=== PATIENT | male | born 1980 | race Caucasian/White ===

== ENCOUNTER 2021-10-21 12:28 | Inpatient (IN) | payer BC ==
[~2021-10-21] VITALS: Ht 182.9 cm; Wt 63.0 kg
--- NOTE | 2021-10-21 13:15 | NUR ---
PATIENT RECEIVED FROM MAIN ER. HE IS CALM, COOPERATIVE, A&O X4. PATIENTS BELONGINGS INVENTORIED AND LOCKED IN OVERFLOW ROOM 27. PATIENT SITTING IN BED AT THIS TIME TALKING WITH FRIEND AT BEDSIDE. NO S/S OF DISTRESS. WILL CONTINUE TO MONITOR.
[2021-10-21 13:21] LABS: CLARITY,URINE CLEAR (Clear); COLOR,URINE YELLOW (Yellow); GLUCOSE, URINE NEGATIVE (Neg); KETONES,URINE NEGATIVE (Neg); LEUKOCYTE ESTERASE ,URINE NEGATIVE (Neg); NITRITES, URINE NEGATIVE (Neg); OCCULT BLOOD,URINE NEGATIVE (Neg); PROTEIN,URINE NEGATIVE (Neg); UROBILINOGEN,URINE 0.2 E.U/dL (0.2-1.0)
[2021-10-21 13:22] LABS: UA COLLECTION TYPE CLN CATCH MIDSTREAM
[2021-10-21 13:23] LABS: BASOPHILS % (AUTO) 0.4 % (0-1); EOSINOPHILS # (AUTO) 0.1 X10'3 (0-0.9); EOSINOPHILS % (AUTO) 0.9 % (0-6); HEMATOCRIT 45.2 % (42.0-52.0); HEMOGLOBIN 15.4 g/dl (14.0-17.9); LYMPHOCYTES # (AUTO) 1.9 X10'3 (1.1-4.8); MEAN CORPUSCULAR HEMOGLOBIN 33.8 PG (27.0-31.0); MEAN CORPUSCULAR HGB CONC 34.1 g/dL (33.0-36.5); MEAN CORPUSCULAR VOLUME 99.2 FL (78-98); MONOCYTES # (AUTO) 0.7 X10'3 (0-0.9); NEUTROPHILS # (AUTO) 7.3 X10'3 (1.8-7.7); NEUTROPHILS % (AUTO) 72.7 % (42-75); PLATELET COUNT 261 X10'3 (140-440); RED BLOOD COUNT 4.56 X10'6 (4.70-6.10); RED CELL DISTRIBUTION WIDTH 13.3 % (11.5-14.5); WHITE BLOOD COUNT 10.1 X10'3 (4.5-11.0)
[2021-10-21 13:29] LABS: ALANINE AMINOTRANSFERASE 22 U/L (12-78); ALBUMIN 4.3 G/DL (3.4-5.0); ALBUMIN/GLOBULIN RATIO 1.4 (1.1-1.5); ALKALINE PHOSPHATASE 76 IU/L (46-116); ANION GAP 10 (8-16); ASPARTATE AMINO TRANSFERASE 16 U/L (10-37); BILIRUBIN,TOTAL 0.5 MG/DL (0.1-1.0); BLOOD UREA NITROGEN 7 MG/DL (7-18); CALCIUM 8.8 MG/DL (8.5-10.1); CHLORIDE 104 MMOL/L (99-107); CREATININE 0.78 MG/DL (0.60-1.10); GLUCOSE 97 MG/DL (70-104); POTASSIUM 4.1 MMOL/L (3.5-5.1); SODIUM 141 MMOL/L (135-145); TOTAL CARBON DIOXIDE 26.9 MMOL/L (24-32); TOTAL PROTEIN 7.3 G/DL (6.4-8.2); eGFR > 90 ML/MIN
[2021-10-21 13:32] LABS: URINE AMPHETAMINE SCREEN NEGATIVE (Neg); URINE BARBITUATE SCREEN NEGATIVE (Neg); URINE BENZODIAZEPINES SCREEN POSITIVE (Neg); URINE CANNABINOID SCREEN POSITIVE (Neg); URINE COCAINE SCREEN NEGATIVE (Neg); URINE METHADONE SCREEN NEGATIVE (Neg); URINE OPIATE SCREEN NEGATIVE (Neg); URINE PHENCYCLIDINE SCREEN NEGATIVE (Neg)
[2021-10-21 13:39] LABS: ETHANOL < 0.010 GM/DL (0.0-0.010)
--- NOTE | 2021-10-21 14:14 | NUR ---
PACKET FAXED TO [facility] AT THIS TIME
[2021-10-21] MEDS ORDERED: NO HOME MEDS (15:09)
--- NOTE | 2021-10-21 15:11 | NUR ---
PATIENT BEING EVALUATED BY LARISA WEI AT THIS TIME
--- NOTE | 2021-10-21 15:30 | NUR ---
PATIENT VOICING SI TO THIS SYSTEM ADMIN. PATIENT ENDORSED THAT HE HAS AN ACTIVE PLAN TO KILL HIMSELF IF HE WAS TO LEAVE, HOWEVER, DOES NOT WANT TO GO INTO DETAIL. HE CONTINUES SITTING IN HIS ROOM QUIETLY AT THIS TIME. NO S/S OF DISTRESS.
[2021-10-21] MEDS ORDERED: nicotine 21mg patch - 24 hr TD ONE (16:00)
--- NOTE | 2021-10-21 17:00 | NUR ---
PATIENT SLEEPING IN BED AT THIS TIME ON HIS LEFT SIDE. RESPIRATIONS EVEN, UNLABORED. NO S/S OF DISTRESS.
--- NOTE | 2021-10-21 18:40 | NUR ---
Patient is resting quietly, mid fowlers position in bed. No distress. Well oriented.
--- NOTE | 2021-10-21 19:20 | NUR ---
Patient is sleeping, low fowlers position in bed. In view from nurses station.
--- NOTE | 2021-10-21 21:10 | NUR ---
Patient remains sleeping, mid fowlers in bed. No distress.
--- NOTE | 2021-10-21 22:46 | NUR ---
Patient sleeps quietly in low fowlers position. No distress noted.
--- NOTE | 2021-10-22 01:12 | NUR ---
Patient is up to bathroom, he returns back to bed to sleep.
--- NOTE | 2021-10-22 02:14 | NUR ---
Patient is sleeping on his right side, bed is in a mid fowlers position.
--- NOTE | 2021-10-22 03:12 | NUR ---
Patient sleeping quietly, no distress.
--- NOTE | 2021-10-22 05:33 | NUR ---
Patient sleeping on his left side. No distress.
--- NOTE | 2021-10-22 06:20 | NUR ---
PATIENT RECEIVED SLEEPING ON HIS LEFT SIDE IN BED THIS MORNING. RESPIRATIONS EVEN, UNLABORED. NO S/S OF DISTRESS. WILL CONTINUE TO MONITOR.
--- NOTE | 2021-10-22 08:30 | NUR ---
PATIENT SITTING IN BED EATING BREAKFAST AT THIS TIME. HE RECEIVED HIS RTN NICOTINE PATCH WITH NO DIFFICULTY AND WAS COOPERATIVE WITH ASSESSMENT. NO CHANGE NOTED AT THIS TIME.
[2021-10-22] MEDS: nicotine 21mg patch - 24 hr TD SCH (09:26)
--- NOTE | 2021-10-22 10:25 | NUR ---
PATIENT APPROACHED THIS MARKETING OUTREACH COORDINATOR TO USE THE PHONE. HE RETREATED BACK TO HIS ROOM AND WAS NOTED QUIETLY TALKING ON THE PHONE WITH HIS MOTHER. NO S/S OF DISTRESS OR COMPLAINTS NOTED.
[2021-10-22] MEDS ORDERED: acetaminophen 325mg tablet PO ONE (12:30)
--- NOTE | 2021-10-22 12:30 | NUR ---
PATIENT CONTINUES SLEEPING IN BED AT THIS TIME. NO S/S OF DISTRESS OR CHANGES NOTED.
--- NOTE | 2021-10-22 14:25 | NUR ---
PATIENT OBSERVED AMBULATING TO THE RESTROOM WITH A STEADY GAIT. HE THEN RETREATED BACK TO HIS ROOM. PATIENT RESTING IN BED AT THIS TIME. NO S/S OF DISTRESS OR COMPLAINTS AT THIS TIME.
--- NOTE | 2021-10-22 16:30 | NUR ---
PATIENT OBSERVED SITTING QUIETLY IN HIS ROOM WRITING ON A PIECE OF PAPER. HE APPROACHED THIS GOLD MINER ASKING FOR A CUP OF COFFEE AND RETREATED BACK TO HIS ROOM. NO S/S OF DISTRESS OR CHANGES.
--- NOTE | 2021-10-22 18:42 | NUR ---
Patient ate his dinner, he then went to sleep. Bed in mid fowlers position, in view from nurses station.
[2021-10-22] MEDS ORDERED: temazepam 15mg capsule PO ONE (19:30)
--- NOTE | 2021-10-22 19:33 | NUR ---
Patient requested and was given paper for drawing. Patient requests medication for sleep/anxiety he states he didn't sleep well last NOC. This policy writer spoke with ER MD. Restoril will be given with a repeat PRN.
--- NOTE | 2021-10-22 20:35 | NUR ---
Patient is sleeping quietly. No distress. Mid fowlers position in bed.
--- NOTE | 2021-10-22 22:21 | NUR ---
Patient is sleeping quietly on his left side. No distress.
--- NOTE | 2021-10-22 22:58 | NUR ---
Patient is sleeping quietly on his left side.
--- NOTE | 2021-10-23 01:17 | NUR ---
Patient awake, ambulated to bathroom. He then returned to bed and sleep.
--- NOTE | 2021-10-23 03:14 | NUR ---
Patient sleeps quietly on his right side. No distress.
--- NOTE | 2021-10-23 03:15 | NUR ---
Patient sleeping quietly in bed. No distress.
--- NOTE | 2021-10-23 06:30 | NUR ---
PATIENT RECEIVED SLEEPING IN BED UPON SHIFT CHANGE. NO S/S OF DISTRESS. RESPIRATIONS EVEN, UNLABORED.
[2021-10-23] MEDS: nicotine 21mg patch - 24 hr TD SCH (08:02)
--- NOTE | 2021-10-23 08:25 | NUR ---
PATIENT SITTING IN HIS ROOM EATING BREAKFAST. HE HAS MADE A FEW PHONE CALLS THIS MORNING TO FAMILY MEMBERS. PATIENT APPROACHED STAFF ASKING FOR PAPER TO WRITE NOTES ON. HE RECEIVED HIS RTN NICOTINE PATCH AND WAS COOPERATIVE WITH ASSESSMENT. NO S/S OF DISTRESS.
--- NOTE | 2021-10-23 10:30 | NUR ---
PATIENT OBSERVED QUIETLY SITTING IN HIS ROOM DRAWING ON A PIECE OF PAPER. PATIENT ASKED THIS APPLIED ANTHROPOLOGIST FOR COFFEE WHICH WAS PROVIDED TO HIM. HE HAS NO COMPLAINTS AT THIS TIME. NO CHANGES NOTED.
--- NOTE | 2021-10-23 12:25 | NUR ---
PATIENT SITTING IN HIS ROOM EATING LUNCH. NO S/S OF DISTRESS. NO CHANGES AT THIS TIME.
--- NOTE | 2021-10-23 14:30 | NUR ---
PATIENT RESTING IN HIS ROOM LYING SUPINE WITH NO COMPLAINTS AT THIS TIME. RESPIRATIONS EVEN, UNLABORED.
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
--- NOTE | 2021-10-23 17:30 | NUR ---
PATIENT HAS BEEN ACCEPTED TO [facility]. TO BE TRANSFERRED TO [facility] AFTER CHANGE OF SHIFT TONIGHT.
--- NOTE | 2021-10-23 19:16 | NUR ---
ASSUMED CARE PT SITTING QUIETLY IN BED.
[2021-10-23] MEDS ORDERED: magnesium hydroxide 30ml (MOM) UD suspension PO PRN (20:50)
[2021-10-23] MEDS ORDERED: mag hydrox/Alum hydrox/simeth 30ml oral suspension PO PRN (20:50)
[2021-10-23] MEDS ORDERED: acetaminophen 325mg tablet PO PRN ×2 (20:50)
[2021-10-23] MEDS ORDERED: loperamide 2mg capsule PO PRN (20:50)
[2021-10-23 21:22] VITALS: BP 123/65
[2021-10-23] MEDS: traZODone 50mg tablet PO PRN (21:58)
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
[2021-10-24] MEDS: traZODone 50mg tablet PO PRN ×2 (02:31→21:32)
--- NOTE | 2021-10-24 03:14 | NUR ---
Pt awake at 0245 sitting in hallway outside of door. Patient states that he is tired of waiting for 1:1 intervention and he wishes to speak to someone. Patient was notified that at 0245 in the morning there is no therapy and doctors are at home. Patient given 50mg Trazodone to help with sleep.
[2021-10-24 07:48] VITALS: BP 113/66
[2021-10-24 07:57] LABS: HEMOGLOBIN A1C 4.9 % (4.5-6.2)
[2021-10-24 07:59] LABS: CHOLESTEROL 167 MG/DL (0-200); HDL CHOLESTEROL 42 MG/DL (35-60); LDL CHOLESTEROL 98 MG/DL (50-100); TRIGLYCERIDES 118 MG/DL (20-135)
[2021-10-24] MEDS: nicotine 21mg patch - 24 hr TD SCH (08:27)
[2021-10-24] MEDS ORDERED: hydrOXYzine 25 MG tablet PO PRN (14:45)
[2021-10-24] MEDS ORDERED: OLANZapine 2.5MG tablet PO PRN (14:45)
[2021-10-24] MEDS ORDERED: FLUoxetine 10mg capsule PO ONE (14:45)
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
[2021-10-24 19:39] VITALS: BP 121/83
[2021-10-24] MEDS: OLANZapine 2.5MG tablet PO SCH (20:17)
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
[2021-10-25 07:41] VITALS: BP 109/68
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
[2021-10-25] MEDS: nicotine 21mg patch - 24 hr TD SCH (08:48)
[2021-10-25] MEDS: FLUoxetine 10mg capsule PO SCH (08:48)
--- NOTE | 2021-10-25 10:22 | NUR ---
Pt. attended group today. Each pt. scaled their mood and anxiety level today to practice scaling. We discussed how trauma/emotion remains in your body and how the brain send messages to the amygdala which can cause a flight/fight response. His demeanor was calm and pleasant. He listened intently to peers and this Insurance Sales Executive and shared appropriately. He was very interested in the information about the limbic system and shared how some of his story and thoughts with the group. He was interested in others in the group and would listen intently to what they have to say and at times ask pertinent questions. This Insurance Sales Executive did not observe his thought content to contain any delusional content and his thought process was linear. He was alert and oriented X 4. Kavita Pierson LCSW
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
[2021-10-25 19:36] VITALS: BP 118/80
[2021-10-25] MEDS: thiamine 100mg tablet PO SCH (20:25)
[2021-10-25] MEDS: traZODone 50mg tablet PO PRN (20:25)
[2021-10-25] MEDS: OLANZapine 2.5MG tablet PO SCH (20:26)
[2021-10-25] MEDS: folic acid 1mg tablet PO SCH (20:26)
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
[2021-10-26 07:44] VITALS: BP 116/68
[2021-10-26] MEDS: folic acid 1mg tablet PO SCH (07:59)
[2021-10-26] MEDS: FLUoxetine 10mg capsule PO SCH (07:59)
[2021-10-26] MEDS: thiamine 100mg tablet PO SCH (07:59)
[2021-10-26] MEDS ORDERED: multivitamins, therapeutics tablet PO SCH (08:00)
[2021-10-26] MEDS: nicotine 21mg patch - 24 hr TD SCH (08:02)
--- NOTE | 2021-10-26 11:02 | NUR ---
DISCHARGE PLAN Ambrose reported he would like to discharge today and return home where he resides with his parents in [place]. He has an appointment with a psychiatrist through [email or web address] on Friday10/29/21. He reported he plans on requesting a therapist during his appointment as well. He denied any current SI or HI. He reported he feels safe to return home. He reported his mom can come pick him up. ELIZ Mackenzie
[2021-10-26] MEDS ORDERED: HYDR50TA65 PO (15:37)
[2021-10-26] MEDS ORDERED: NICO-687 TD (15:37)
[2021-10-26] MEDS ORDERED: TRAZ-251 PO (15:37)
[2021-10-26] MEDS ORDERED: PROZ10C PO (15:37)
[2021-10-26] MEDS ORDERED: folic acid tablet PO (15:37)
[2021-10-26] MEDS ORDERED: OLAN10TA40 PO (15:37)
--- NOTE | 2021-10-26 17:30 | NUR ---
DISCHARGE NOTE: Pt discharged home with mom, ambulated off the unit accompanied by this RN. Pt expressed understanding of his discharge instructions including Rx's and follow up care, all belongings returned.
== END 2021-10-26 17:30 | disposition home or self-care (01) | DRG 885 ==
LOC: ER 12:28 → ADULT MH 10-23 17:15
PROVIDERS: ADMIT Psychiatry & Neurology Psychiatry; ATTEND Psychiatry & Neurology Psychiatry
DX: F31.12 Bipolar disorder, current episode manic without psychotic features, moderate (principal); R45.851 Suicidal ideations; F17.210 Nicotine dependence, cigarettes, uncomplicated; F10.10 Alcohol abuse, uncomplicated; F12.10 Cannabis abuse, uncomplicated; Z87.442 Personal history of urinary calculi
CPT/HCPCS: 36415; 80053; 80061; 80305; 80320; 81003; 83036; 84443; 85025; 87081; 87635; 99285; C9803